=== PATIENT | male | born 1975 | race Caucasian/White ===

== ENCOUNTER 2017-10-29 10:08 | Observation (INO) | payer MEDICARE, MEDICAID ==
[~2017-10-29] VITALS: Ht 170.2 cm; Wt 78.0 kg
[2017-10-29] VITALS (7 sets, daily range): BP systolic 150; BP diastolic 88–90; PULSE 48–68; RESP 16; TEMP 97.8–98.3; O2SAT 96–98
[2017-10-29] MEDS ORDERED: CALC1CAP PO (10:41)
[2017-10-29 10:57] LABS: AUTOMATED NEUTROPHIL # 4.4 TH/MM3 (1.8-7.7); BASOPHIL # 0.1 TH/MM3 (0-0.2); BASOPHIL % 0.9 % (0.0-2.0); EOSINOPHIL # 0.2 TH/MM3 (0-0.4); EOSINOPHIL % 2.8 % (0.0-4.0); HEMATOCRIT 32.7 % (39.0-51.0); LYMPH % 19.9 % (9.0-44.0); LYMPHOCYTE # 1.3 TH/MM3 (1.0-4.8); MEAN CELL VOLUME 68.9 FL (80.0-100.0); MEAN CORPUSCULAR HGB CONC 30.5 % (32.0-36.0); MEAN PLATELET VOLUME 9.3 FL (7.0-11.0); MONO % 6.9 % (0.0-8.0); MONOCYTE # 0.4 TH/MM3 (0-0.9); NEUT % 69.5 % (16.0-70.0); PLATELET COUNT 90 TH/MM3 (150-450); RED BLOOD COUNT 4.75 MIL/MM3 (4.50-5.90); RED CELL DISTRIBUTION WIDTH 19.2 % (11.6-17.2); WHITE BLOOD COUNT 6.3 TH/MM3 (4.0-11.0)
[2017-10-29] MEDS ORDERED: SODIUM CHLORID 0.9% 500 ML IV PRN (11:00)
[2017-10-29] MEDS ORDERED: METOPROLOL TARTRATE 25 MG TAB PO PRN (11:00)
[2017-10-29] MEDS ORDERED: CHLORHEXIDINE GLUCONATE 2 % 1 PACK (2 CLOTHS) TOPICAL PRN (11:00)
[2017-10-29] MEDS ORDERED: POVIDONE IODINE 5% (ANTISEPSIS KIT) 4 APPLICATIONS EACH NARE PRN (11:00)
[2017-10-29] MEDS ORDERED: LACTATED RINGER'S 1000 ML IV PRN (11:00)
[2017-10-29 11:08] LABS: PROTHROMBIN TIME - PATIENT 10.1 SEC (9.8-11.6)
[2017-10-29 11:17] LABS: BICARBONATE 20.4 MEQ/L (21.0-32.0); CALCIUM 9.5 MG/DL (8.5-10.1)
[2017-10-29 11:33] LABS: CREATININE 12.96 MG/DL (0.60-1.30)
[2017-10-29 11:36] LABS: OVALOCYTES 1+ (NORMAL); TEARDROP RBCS 1+ (NORMAL)
[2017-10-29] MEDS ORDERED: PROTAMINE SULFATE 50 MG/5 ML VIAL ONE (12:08)
[2017-10-29] MEDS ORDERED: HEPARIN SODIUM - IV 10,000 UNITS/10 ML VIAL ONE (12:08)
[2017-10-29] MEDS ORDERED: HEPARIN-NS/PF INJ 500 ML ONE (12:09)
[2017-10-29] MEDS ORDERED: VANCOMYCIN HCL 1000 MG VIAL ONE (12:09)
[2017-10-29] MEDS ORDERED: BUPIVACAINE HCL PF 0.5% 30 ML VIAL ONE (12:09)
--- NOTE | 2017-10-29 12:12 | PD.VS.PN ---
Pre-operative Note Pre-operative diagnosis: ESRD, need for HD access Planned procedure: R brachiobasilic AVF Interval History: Pt had HD over week-end. Feels nauseated because NPO but otherwise ready for procedure Labs: Laboratory Results Test 10/29/17 10:40 Anion Gap 11 MEQ/L (5-15) Blood Urea Nitrogen 71 MG/DL (7-18) Creatinine 12.96 MG/DL (0.60-1.30) Random Glucose 94 MG/DL (74-106) Calcium Level 9.5 MG/DL (8.5-10.1) Sodium Level 141 MEQ/L (136-145) Potassium Level 5.8 MEQ/L (3.5-5.1) Chloride Level 110 MEQ/L (98-107) Carbon Dioxide Level 20.4 MEQ/L (21.0-32.0) Hematocrit 32.7 % (39.0-51.0) Hemoglobin 10.0 GM/DL (13.0-17.0) Mean Corpuscular Hemoglobin 21.0 PG (27.0-34.0) Mean Corpuscular Hemoglobin Concent 30.5 % (32.0-36.0) Mean Corpuscular Volume 68.9 FL (80.0-100.0) Mean Platelet Volume 9.3 FL (7.0-11.0) Platelet Count 90 TH/MM3 (150-450) Prothromb Time International Ratio 1.0 RATIO Red Blood Count 4.75 MIL/MM3 (4.50-5.90) Red Cell Distribution Width 19.2 % (11.6-17.2) White Blood Count 6.3 TH/MM3 (4.0-11.0) Blood: none needed Imaging: ultrasound reviewed Orders: NPO VANC 1g IV OCTOR Post-operative destination: PACU, CPCU Operative site marked: Yes Consent: Informed consent has been obtained from Fly Feng. I have explained the procedure in detail and discussed the risks, benefits, and potential complications. All questions have been answered. Patient contact information: Mother [phone] BereniceDaljit aDng MD Oct 29, 2017 12:12
[2017-10-29] MEDS ORDERED: THROMBIN (TOPICAL) 20,000 UNIT SPRAY KIT ONE (13:10)
--- NOTE | 2017-10-29 14:27 | HHI.PR ---
cc: Daljit Ng MD Immediate Post Op Note Procedure Date: Oct 29, 2017 Pre Op Diagnosis: ESRD, need for HD access Post Op Diagnosis: ESRD, need for HD Access Surgeon: Daljit Ng Multimedia Specialist(s): Bre Avalos Procedure: R brachiobasilic AVF Findings: 4mm vein, 3mm artery Additional Information: + thrill and + ulnar pulse at conclusion of case Complications: none Specimen(s) removed: none Estimated blood loss: 50mL Anesthesia: General Drains: OWEN Fluids: 750mL IVF Patient to: PACU Patient Condition: Good Date/Time of Procedure: SEE SURGICAL CARE RECORD Daljit Ng MD Oct 29, 2017 14:27
[2017-10-29] MEDS ORDERED: HYDROmorphone HCL 2 MG TAB PO PRN (14:30)
[2017-10-29] MEDS ORDERED: HEPARIN SODIUM - SQ 10,000 UNITS/ML VIAL SQ SCH (14:30)
[2017-10-29] MEDS ORDERED: LACTULOSE SYRUP 20 GM/30 ML CUP PO PRN (14:30)
[2017-10-29] MEDS ORDERED: SENNOSIDES 8.6 MG TAB PO PRN (14:30)
[2017-10-29] MEDS ORDERED: BISACODYL 10 MG SUPP RECTAL PRN (14:30)
[2017-10-29] MEDS ORDERED: MORPHINE SULFATE 2 MG/ML INJ IV PRN (14:45)
[2017-10-29] MEDS ORDERED: DO NOT ADM ANY ANTICOAGULANT DRUGS PRN (15:06)
[2017-10-29] MEDS ORDERED: SODIUM CHLOR 0.9% 1000 ML INJ 1,000 ML OTHER PRN ×2 (16:03)
[2017-10-29] MEDS ORDERED: SODIUM CHLOR 0.9% 1000 ML INJ 1,000 ML IV PRN (16:03)
--- NOTE | 2017-10-29 16:11 | PD.CONS ---
HPI Service Nephrology Consult Requested By Reason for Consult ESRD on HD, hyperkalemia Primary Care Physician Fausto Meeks MD History of Present Illness This is a 41 y/o male who was admitted post AVF creation, brachiobasilic. His right lower arm AVF failed, he has a Permcath for dialysis. He now has a OWEN drain medial AC area. He is having pain. His labs are significant for elevated creatinine in the setting of ESRD and hyperkalemia at 5.8. He is seen today during dialysis. Otherwise is doing well. PMH as listed below. We were consulted for management. (Deloris Henderson) Review of Systems Constitutional: COMPLAINS OF: Fatigue Musculoskeletal: COMPLAINS OF: Muscle aches, Joint Swelling (Deloris Henderson) Past Family Social History Allergies: Coded Allergies: No Known Allergies (Unverified , 10/29/17) Past Medical History ESRD on HD HTN Metabolic bone disease Secondary hyperparathyroidism Past Surgical History Right lower arm, AVF, failed New BB AVF, upper arm. Reported Medications Unable to list medications. Active Ordered Medications Current Medications Medications (Trade) Dose Ordered Sig/Yeny Route Start Time Stop Time Status Last Admin Lactated Ringer's 1,000 ml @ 30 mls/hr Q24H PRN IV 10/29/17 11:00 11/01/17 10:59 Sodium Chloride 500 ml @ 30 mls/hr [id number] PRN IV 10/29/17 11:00 11/01/17 10:59 10/29/17 10:15 (Lopressor) 25 mg RECREATION DIRECTOR PRN PO 10/29/17 11:00 11/01/17 10:59 (Betadine 5% Antisepsis Kit) 1 applic RECREATION DIRECTOR PRN EACH NARE 10/29/17 11:00 11/01/17 10:59 10/29/17 10:30 (Chlorhexidine 2% Cloth) 3 pack RECREATION DIRECTOR PRN TOPICAL 10/29/17 11:00 11/01/17 10:59 (Pepcid) 20 mg DAILY PO 10/29/17 21:00 (Roxicodone) 5 mg Q4H PRN PO 10/29/17 14:30 (Dilaudid) 2 mg Q4H PRN PO 10/29/17 14:30 (Morphine Inj) 2 mg Q1H PRN IV 10/29/17 14:45 (Aneta-Colace) 1 tab BID PO 10/29/17 21:00 (Senokot) 17.2 mg Q12H PRN PO 10/29/17 14:30 (Dulcolax Supp) 10 mg DAILY PRN RECTAL 10/29/17 14:30 (Lactulose Liq) 30 ml DAILY PRN PO 10/29/17 14:30 (Phoslo) 2,001 mg TID PO 10/29/17 18:00 Miscellaneous Information ALL NURSING DEPARTME... UNSCH PRN .XX 10/29/17 15:06 10/30/17 15:05 (Heparin Inj) 5,000 units Q8HR SQ 10/30/17 14:00 Family History Non contributory Social History He does not smoke Unemployed Full code Single. (Deloris Henderson) Physical Exam Vital Signs Vital Signs Date Time Temp Pulse Resp B/P (MAP) Pulse Ox O2 Delivery O2 Flow Rate FiO2 10/29/17 15:30 97.8 56 20 167/100 (122) 100 Nasal Cannula 2 10/29/17 15:15 57 20 173/103 (126) 100 Nasal Cannula 2 10/29/17 15:08 97.8 60 20 192/102 (132) 95 Nasal Cannula 2 10/29/17 10:48 98.4 48 20 180/108 (132) 98 Physical Exam Young appearing male, receiving dialysis Permcath right chest AVF right upper arm, edematous and slightly tender OWEN drain right medial AC area No lower extremity edema S1/S2, lungs clear, BS normal x 4 Laboratory Laboratory Tests Test 10/29/17 10:40 White Blood Count 6.3 Red Blood Count 4.75 Hemoglobin 10.0 Hematocrit 32.7 Mean Corpuscular Volume 68.9 Mean Corpuscular Hemoglobin 21.0 Mean Corpuscular Hemoglobin Concent 30.5 Red Cell Distribution Width 19.2 Platelet Count 90 Mean Platelet Volume 9.3 Neutrophils (%) (Auto) 69.5 Lymphocytes (%) (Auto) 19.9 Monocytes (%) (Auto) 6.9 Eosinophils (%) (Auto) 2.8 Basophils (%) (Auto) 0.9 Neutrophils # (Auto) 4.4 Lymphocytes # (Auto) 1.3 Monocytes # (Auto) 0.4 Eosinophils # (Auto) 0.2 Basophils # (Auto) 0.1 CBC Comment AUTO DIFF Differential Comment AUTO DIFF CONFIRMED Platelet Estimate LOW Platelet Morphology Comment ENLARGED Tear Drop Cells 1+ Ovalocytes 1+ Prothrombin Time 10.1 Prothromb Time International Ratio 1.0 Blood Urea Nitrogen 71 Creatinine 12.96 Random Glucose 94 Calcium Level 9.5 Sodium Level 141 Potassium Level 5.8 Chloride Level 110 Carbon Dioxide Level 20.4 Anion Gap 11 Estimat Glomerular Filtration Rate 4 (Deloris Henderson) Result Diagram: 10/29/17 1040 10/29/17 1040 Assessment and Plan Problem List: (1) ESRD (end stage renal disease) ICD Codes: N18.6 - End stage renal disease Plan: Seen during dialysis today (due to hyperkalemia) on a 1K, 350 BFR, goal 3L Resume MWF HD schedule in AM Repeat labs in AM Avoid IVF administration (2) Complication of AV dialysis fistula ICD Codes: T82.9XXA - Unspecified complication of cardiac and vascular prosthetic device, implant and graft, initial encounter Plan: S/P new BB AVF right upper arm Vascular to manage prn pain medications (3) Hyperkalemia ICD Codes: E87.5 - Hyperkalemia Plan: Dialysis today on a 1K Low K diet encouraged (4) Metabolic bone disease ICD Codes: E88.9 - Metabolic disorder, unspecified; M90.80 - Osteopathy in diseases classified elsewhere, unspecified site Plan: Check phosphorus level Renvela ordered (5) Anemia ICD Codes: D64.9 - Anemia, unspecified Plan: Epogen with dialysis has been ordered (Deloris Henderson) Assessment and Plan patient was seen and examined. Agree with above assessment and plan. Seen during dialysis. Dialysis arranged because of hyperkalemia. (Boogie Fontenot MD) Deloris Henderson Oct 29, 2017 16:11 Boogie Fontenot MD Oct 29, 2017 21:34
[2017-10-29] MEDS ORDERED: HEPARIN SODIUM - IV 10,000 UNITS/10 ML VIAL PRN (16:15)
[2017-10-29] MEDS ORDERED: HEPARIN SODIUM - IV 10,000 UNITS/10 ML VIAL IV FLUSH PRN (16:15)
[2017-10-29] MEDS ORDERED: GELATIN 12 MM/7 MM FOAM TOP PRN (16:15)
[2017-10-29] MEDS ORDERED: NITROGLYCERIN 0.4 MG SL 25 TABS/BTL SL PRN (16:15)
[2017-10-29] MEDS ORDERED: ACETAMINOPHEN 325 MG TAB PO PRN (16:15)
[2017-10-29] MEDS ORDERED: EPOETIN ALFA 10,000 UNITS/ML VIAL IV PUSH PRN (16:15)
[2017-10-29] MEDS ORDERED: cloNIDine HCL 0.1 MG TAB PO PRN (16:15)
[2017-10-29] MEDS ORDERED: ALBUMIN 25% INJ 100 ML IV PRN (16:15)
[2017-10-29] MEDS ORDERED: MANNITOL 12.5 GM/50 ML VIAL IV PRN (16:15)
[2017-10-29] MEDS ORDERED: ONDANSETRON HCL 4 MG/2 ML VIAL IV PUSH PRN (16:15)
[2017-10-29] MEDS ORDERED: diphenhydrAMINE HCL 25 MG CAP PO PRN (16:15)
[2017-10-29] MEDS ORDERED: GENTAMICIN SULFATE (DIALYSIS USE ONLY) 20 MG/2 ML VIAL OTHER PRN (16:15)
[2017-10-29] MEDS ORDERED: SODIUM CHLORIDE 0.9% FLUSH 10 ML FLUSH IV FLUSH PRN (16:15)
[2017-10-29] MEDS: CALCIUM ACETATE 667 MG CAP PO SCH (20:46)
[2017-10-29] MEDS: FAMOTIDINE 20 MG TAB PO SCH (20:46)
[2017-10-29] MEDS: DOCUSATE SODIUM 50 MG/SENNA 8.6 MG TAB PO SCH (20:46)
[2017-10-29] MEDS: SEVELAMER CARBONATE 800 MG TAB PO SCH (20:46)
--- NOTE | 2017-10-29 21:46 | MP ---
cc: ELEAZAR NG MD DATE OF SURGERY: 10/29/2017 PREOPERATIVE DIAGNOSIS: End-stage renal disease needs dialysis access POSTOPERATIVE DIAGNOSIS End-stage renal disease, needs dialysis access. PROCEDURE Right brachial basilic arteriovenous fistula. ATTENDING SURGEON: Eleazar Ng MD. FRAUD ANALYST SURGEON: Bre Willoughby. ANESTHESIA General INDICATIONS Mr. Feng is a 41 old gentleman who has been on dialysis for some time. He is taken to the operating room for new access creation. Preoperative imaging suggested his right basilic vein was his best autogenous conduit. DESCRIPTION OF PROCEDURE Informed consent was obtained from the patient. He is taken to the operating room, placed supine on the operating room table. Appropriate time-out was taken to ensure the patient's operative site and planned procedure. Administration of a gram of Vancomycin was initiated prior to the skin incision and will be discontinued after a single preoperative dose. Vancomycin was chosen because of the patient's end-stage renal disease. Everyone in the room agreed with the time out and we proceeded. His entire right arm was prepped and draped. An incision was made over the medial aspect of the upper arm, carried down through the subcutaneous tissue with electrocautery. The basilic vein was identified and dissected free. The side branches were ligated with 3-0 silk. The basilic vein was dissected from the antecubitum all the way up to the axilla. The vein was marked for identification. The brachial artery was identified on the medial aspect of the incision down at the distal end and the basilic vein was clamped with the right angle down to the antecubitum, transected, and the distal end was oversewn with silk suture. The vein was distended, noted to be hemostatic and then a tunnel was then created on the anterior aspect of the arm, and the vein was passed through this tunnel taking caution not to twist it. The patient was systematically heparinized with 3000 units of IV heparin. The proximal and distal brachial artery obtained with the profunda clamps and a longitudinal arteriotomy was made and extended with Rolando scissors. The vein was cut to appropriate length, spatulated and sewn end-to-side with running 6-0 Prolene suture. The patient was flushed and noted to be hemostatic. All the clamps released. There was a nice thrill in the fistula and a Doppler signal at rest. The heparin was reversed with protamine. A 10 flat OWEN drain was placed through a separate stab wound, secured to the skin with a 2-0 nylon. The wound was made hemostatic and closed with 2-0 Polysorb, 3-0 Polysorb and 4-0 Monocryl. Sponge and needle counts were correct at the end of the case. I was present and scrubbed and performed the entire procedure. MD HILTON Dowd/PAM /8:04 PM /8:40 PM
[2017-10-30] VITALS (14 sets, daily range): BP systolic 150–160; BP diastolic 85–96; PULSE 62–90; RESP 16–19; TEMP 97.6–98.3; O2SAT 97–99
[2017-10-30 04:19] LABS: HEMATOCRIT 32.1 % (39.0-51.0); HEMOGLOBIN 10.3 GM/DL (13.0-17.0); MEAN CELL VOLUME 67.7 FL (80.0-100.0); MEAN CORPUSCULAR HEMOGLOBIN 21.7 PG (27.0-34.0); MEAN CORPUSCULAR HGB CONC 32.1 % (32.0-36.0); MEAN PLATELET VOLUME 10.7 FL (7.0-11.0); PLATELET COUNT 115 TH/MM3 (150-450); RED BLOOD COUNT 4.75 MIL/MM3 (4.50-5.90); RED CELL DISTRIBUTION WIDTH 18.7 % (11.6-17.2); WHITE BLOOD COUNT 8.3 TH/MM3 (4.0-11.0)
[2017-10-30 04:39] LABS: BICARBONATE 29.2 MEQ/L (21.0-32.0); CALCIUM 8.4 MG/DL (8.5-10.1); CREATININE 9.73 MG/DL (0.60-1.30); PHOSPHORUS 3.9 MG/DL (2.5-4.9)
--- NOTE | 2017-10-30 07:18 | PD.VS.PN ---
Subjective POD #: 1 Procedure(s): R brachiobasilic AVF Subjective/Hospital Course pain controlled last night Had HD but K still high this morning. Objective Vitals/I&O Date Time Temp Pulse Resp B/P (MAP) Pulse Ox O2 Delivery O2 Flow Rate FiO2 10/30/17 06:00 70 10/30/17 05:00 68 10/30/17 04:31 98 Nasal Cannula 2.00 10/30/17 04:00 70 10/30/17 03:10 97.6 71 16 154/95 (114) 98 10/30/17 03:00 72 10/30/17 02:00 62 10/30/17 01:00 66 10/30/17 00:00 74 10/29/17 23:10 98.3 64 16 150/90 (110) 98 10/29/17 23:00 68 10/29/17 22:00 58 10/29/17 21:00 56 10/29/17 20:20 97.8 57 16 150/88 (108) 96 10/29/17 20:00 48 10/29/17 19:00 52 10/29/17 15:30 97.8 56 20 167/100 (122) 100 Nasal Cannula 2 10/29/17 15:15 57 20 173/103 (126) 100 Nasal Cannula 2 10/29/17 15:08 97.8 60 20 192/102 (132) 95 Nasal Cannula 2 10/29/17 10:48 98.4 48 20 180/108 (132) 98 10/30/17 10/30/17 10/30/17 07:00 15:00 23:00 Intake Total 720 ml Output Total 220 ml Balance 500 ml Exam: R UE with excellent thrill hand ok drain - 20 cc of serosang Laboratory Laboratory Tests Test 10/29/17 10:40 10/30/17 03:40 White Blood Count 6.3 8.3 Red Blood Count 4.75 4.75 Hemoglobin 10.0 10.3 Hematocrit 32.7 32.1 Mean Corpuscular Volume 68.9 67.7 Mean Corpuscular Hemoglobin 21.0 21.7 Mean Corpuscular Hemoglobin Concent 30.5 32.1 Red Cell Distribution Width 19.2 18.7 Platelet Count 90 115 Mean Platelet Volume 9.3 10.7 Neutrophils (%) (Auto) 69.5 Lymphocytes (%) (Auto) 19.9 Monocytes (%) (Auto) 6.9 Eosinophils (%) (Auto) 2.8 Basophils (%) (Auto) 0.9 Neutrophils # (Auto) 4.4 Lymphocytes # (Auto) 1.3 Monocytes # (Auto) 0.4 Eosinophils # (Auto) 0.2 Basophils # (Auto) 0.1 CBC Comment AUTO DIFF Differential Comment AUTO DIFF CONFIRMED Platelet Estimate LOW Platelet Morphology Comment ENLARGED Tear Drop Cells 1+ Ovalocytes 1+ Prothrombin Time 10.1 Prothromb Time International Ratio 1.0 Blood Urea Nitrogen 71 50 Creatinine 12.96 9.73 Random Glucose 94 102 Calcium Level 9.5 8.4 Sodium Level 141 136 Potassium Level 5.8 6.1 Chloride Level 110 100 Carbon Dioxide Level 20.4 29.2 Anion Gap 11 7 Estimat Glomerular Filtration Rate 4 6 Phosphorus Level 3.9 Assessment and Plan Plan POD#1 s/p R UE brachiobasilic AVF 1. D/C OWEN - done on rounds 2. D/C today after HD 3. F/U 2 weeks Daljit Ng MD Oct 30, 2017 07:18
--- NOTE | 2017-10-30 07:20 | PD.VS.DC ---
Discharge Summary Admission Date: Oct 29, 2017 at 14:30 Discharge Date: Oct 30, 2017 Admission Diagnosis: (1) ESRD (end stage renal disease) (2) Complication of AV dialysis fistula Discharge Diagnosis: (1) ESRD (end stage renal disease) ICD Codes: N18.6 - End stage renal disease (2) Complication of AV dialysis fistula ICD Codes: T82.9XXA - Unspecified complication of cardiac and vascular prosthetic device, implant and graft, initial encounter Brief History from admission 41 yo male with ESRD, + HD. Previously had R RC AVF that has thrombosed. Pt LEFT handed. Planned R UE brachiobasilic AVF Procedure(s): R brachiobasilic AVF Significant Findings Laboratory Tests Test 10/29/17 10:40 10/30/17 03:40 Hemoglobin 10.0 GM/DL (13.0-17.0) 10.3 GM/DL (13.0-17.0) Hematocrit 32.7 % (39.0-51.0) 32.1 % (39.0-51.0) Mean Corpuscular Volume 68.9 FL (80.0-100.0) 67.7 FL (80.0-100.0) Mean Corpuscular Hemoglobin 21.0 PG (27.0-34.0) 21.7 PG (27.0-34.0) Mean Corpuscular Hemoglobin Concent 30.5 % (32.0-36.0) Red Cell Distribution Width 19.2 % (11.6-17.2) 18.7 % (11.6-17.2) Platelet Count 90 TH/MM3 (150-450) 115 TH/MM3 (150-450) Platelet Estimate LOW (NORMAL) Platelet Morphology Comment ENLARGED (NORMAL) Tear Drop Cells 1+ (NORMAL) Ovalocytes 1+ (NORMAL) Blood Urea Nitrogen 71 MG/DL (7-18) 50 MG/DL (7-18) Creatinine 12.96 MG/DL (0.60-1.30) 9.73 MG/DL (0.60-1.30) Potassium Level 5.8 MEQ/L (3.5-5.1) 6.1 MEQ/L (3.5-5.1) Chloride Level 110 MEQ/L (98-107) Carbon Dioxide Level 20.4 MEQ/L (21.0-32.0) Estimat Glomerular Filtration Rate 4 ML/MIN (>89) 6 ML/MIN (>89) Calcium Level 8.4 MG/DL (8.5-10.1) Hospital Course: Pt adm post-op. Had HD POD#0 and will need again POD#1 for hyperkalemia. Hand ok and excellent thrill POD#1. OWEN out without difficulty. Mahin po. Discharge Condition: Good Discharge Disposition: Discharge Home Any questions or concerns: Call [facility] at [facility] [phone] Daljit Ng MD Oct 30, 2017 07:20
[2017-10-30] MEDS: FAMOTIDINE 20 MG TAB PO SCH (08:04)
[2017-10-30] MEDS: CALCIUM ACETATE 667 MG CAP PO SCH (08:04)
[2017-10-30] MEDS: SEVELAMER CARBONATE 800 MG TAB PO SCH ×2 (08:04→12:52)
[2017-10-30] MEDS: DOCUSATE SODIUM 50 MG/SENNA 8.6 MG TAB PO SCH (08:05)
[2017-10-30] MEDS ORDERED: INSULIN HUMAN REGULAR 1,000 UNITS/10 ML VIAL IV PUSH ONE (09:00)
[2017-10-30] MEDS ORDERED: DEXTROSE 50% IN WATER 50 ML SYRINGE IV PUSH ONE (09:00)
[2017-10-30] MEDS ORDERED: SODIUM BICARBONATE 8.4% INJ 50 MEQ/50 ML SYR IV PUSH ONE (09:00)
--- NOTE | 2017-10-30 09:46 | HHI.NPPN ---
Subjective Renal Failure: Chronic, End Stage Renal Disease Interval History Seen during dialysis. He is again hyperkalemic. (Deloris Henderson) Objective Data Data Vital Signs Date Time Temp Pulse Resp B/P (MAP) Pulse Ox O2 Delivery O2 Flow Rate FiO2 10/30/17 09:00 65 10/30/17 08:00 90 10/30/17 07:00 98.3 67 19 150/85 (106) 97 10/30/17 07:00 67 10/30/17 06:00 70 10/30/17 05:00 68 10/30/17 04:31 98 Nasal Cannula 2.00 10/30/17 04:00 70 10/30/17 03:10 97.6 71 16 154/95 (114) 98 10/30/17 03:00 72 10/30/17 02:00 62 10/30/17 01:00 66 10/30/17 00:00 74 10/29/17 23:10 98.3 64 16 150/90 (110) 98 10/29/17 23:00 68 10/29/17 22:00 58 10/29/17 21:00 56 10/29/17 20:20 97.8 57 16 150/88 (108) 96 10/29/17 20:00 48 10/29/17 19:00 52 10/29/17 15:30 97.8 56 20 167/100 (122) 100 Nasal Cannula 2 10/29/17 15:15 57 20 173/103 (126) 100 Nasal Cannula 2 10/29/17 15:08 97.8 60 20 192/102 (132) 95 Nasal Cannula 2 10/29/17 10:48 98.4 48 20 180/108 (132) 98 (Deloris Henderson) -: 10/30/17 0340 10/30/17 0340 Tubes & Lines: Perma-Cath (Deloris Henderson) Physical Exam General Appearance: Well Developed, Comfortable (Deloris Henderson) Eyes Eye Exam: Pupils Equal (Deloris Henderson) Throat Throat Exam: Oral Mucosa [place] & Moist (Deloris Henderson) Pulmonary Resp Exam: Clear Bilaterally, Breath Sounds Equal (Deloris Henderson) Cardiology CV Exam: Regular, Normal Sinus Rhythm (Deloris Henderson) Gastrointestinal/Abdomen GI Exam: Soft, Non-Tender (Deloris Henderson) Musculoskeletal MS Exam: Joints Intact, Normal Tone (Deloris Henderson) Integumentary Skin Exam: Warm, Dry (Deloirs Henderson) Extremeties Extremities Exam: No Edema, Pedal Pulses Palpable Extremeties Remarks right arm, AVF patent upper arm, minor edema (Deloris Henderson) Neurologic Neuro Exam: Alert, Awake, Oriented, Speech Clear, Moving All Extremities (Deloris Henderson) Psychiatric Psych Exam: Appropriate Responses (Deloris Henderson) Assessment/Plan Discussed Condition With: Patient Assessment Summary: Anemia of CKD, Hypertension, End Stage Renal Disease Problem List: (1) ESRD (end stage renal disease) ICD Codes: N18.6 - End stage renal disease Plan: Dialyzed yesterday due to hyperkalemia; seen during dialysis today on a 1K, 350 BFR, goal 1L. Resume MWF HD schedule at discharge. Goes to [facility] clinic. Avoid IVF administration Low K diet ordered. Cleared for discharge when vascular agrees. (2) Complication of AV dialysis fistula ICD Codes: T82.9XXA - Unspecified complication of cardiac and vascular prosthetic device, implant and graft, initial encounter Plan: S/P new BB AVF right upper arm Vascular to manage prn pain medications (3) Hyperkalemia ICD Codes: E87.5 - Hyperkalemia Plan: Dialysis today on a 1K Low K diet encouraged (4) Metabolic bone disease ICD Codes: E88.9 - Metabolic disorder, unspecified; M90.80 - Osteopathy in diseases classified elsewhere, unspecified site Plan: On Renvela, stop Calcium acetate. (5) Anemia ICD Codes: D64.9 - Anemia, unspecified Plan: Epogen with dialysis has been ordered (Deloris Henderson) Plan patient was seen and examined during dialysis. Hyperkalemia is noted. Should improve after dialysis. Cleared for discharge from renal standpoint. (Boogie Fontenot MD) Deloris Henderson Oct 30, 2017 09:46 Boogie Fontenot MD Oct 30, 2017 17:48
[2017-10-30] MEDS ORDERED: HEPARIN SODIUM - SQ 10,000 UNITS/ML VIAL SQ SCH (14:00)
== END 2017-10-30 14:08 | disposition home or self-care (01) ==
LOC: HSDC 10:08 → HSDI 14:30 → HCPC 18:53
PROVIDERS: ADMIT Surgery; ATTEND Surgery
DX: T82.590A Other mechanical complication of surgically created arteriovenous fistula, initial encounter (principal); I12.0 Hypertensive chronic kidney disease with stage 5 chronic kidney disease or end stage renal disease; N18.6 End stage renal disease; D63.1 Anemia in chronic kidney disease; E87.5 Hyperkalemia; E88.89 Other specified metabolic disorders; N25.81 Secondary hyperparathyroidism of renal origin; Y83.2 Surgical operation with anastomosis, bypass or graft as the cause of abnormal reaction of the patient, or of later complication, without mention of misadventure at the time of the procedure
CPT/HCPCS: 01844; 36821; 76937; 80048; 84100; 85025; 85027; 85610; 86850; 86900; 86901; 96374; 96375; G0257; G0378; J1580; J1644; J2720; J3010; J3370; J7030; J7040; Q4081; 90935

== ENCOUNTER 2017-12-24 14:57 | Day surgery (SDC) | payer MEDICARE, MEDICAID ==
[~2017-12-24 14:57] MED LIST: CALC1CAP PO
[2017-12-24] MEDS ORDERED: IOHEXOL 350 MG/ML 50 ML BTL (for Cath Lab) OTHER ONE (14:58)
--- NOTE | 2017-12-24 15:19 | HHI.HP ---
History of Present Illness Chief Complaint: nonmaturing R UE AVF History of Present Illness 42 yo male with ESRD currently on HD. Underwent R BB AVF and on routine surveillance for AVF clearance was noted to have outflow stenosis. No other medical troubles that would preclude OR. Past/Family/Social History Past Medical History ESRD HTN Past Surgical History Multiple UE AVF Social History nonsmoker Family History NC Home Medications Reported Medications Calcium Acetate (Phosphate Binder) (Calcium Acetate (Phosphate Binder)) 667 Mg Cap, 2001 MG PO TID for Hyperphosphatemia, #270 CAP 0 Refills 10/29/17 Coded Allergies: No Known Allergies (Unverified , 10/29/17) Review of Systems Constitutional: DENIES: Diaphoretic episodes, Fatigue, Fever, Weight gain, Weight loss, Chills, Dizziness, Change in appetite, Night Sweats Physical Exam Neuro: awake, alert HEENT: NC/AT Neck: no JVD Heart: reg rate Lungs: clear B Vascular: R UE + thrill hand ok pending Caprini VTE Risk Assessment Caprini VTE Risk Assessment: No/Low Risk (score <= 1) Caprini Risk Assessment Model Point Value = 1 Point Value = 2 Point Value = 3 Point Value = 5 Age 41-60 Minor surgery BMI > 25 kg/m2 Swollen legs Varicose veins or History of unexplained or recurrent spontaneous Oral contraceptives or hormone replacement Sepsis (< 1 month) Serious lung disease, including pneumonia (< 1 month) Abnormal pulmonary function Acute myocardial infarction Congestive heart failure (< 1 month) History of inflammatory bowel disease Medical patient at bed rest Age 61-74 Arthroscopic surgery Major open surgery (> 45 min) Laparoscopic surgery (> 45 min) Malignancy Confined to bed (> 72 hours) Immobilizing plaster cast Central venous access Age >= 75 History of VTE Family history of VTE Factor V Leiden Prothrombin [id number] Lupus anticoagulant Anticardiolipin antibodies Elevated serum homocysteine Heparin-induced thrombocytopenia Other congenital or acquired thrombophilia Stroke (< 1 month) Elective arthroplasty Hip, pelvis, or leg fracture Acute spinal cord injury (< 1 month) Prophylaxis Regimen Total Risk Factor Score Risk Level Prophylaxis Regimen 0-1 Low Early ambulation 2 Moderate Order ONE of the following: *Sequential Compression Device (SCD) *Heparin 5000 units SQ BID 3-4 Higher Order ONE of the following medications: *Heparin 5000 units SQ TID *Enoxaparin/Lovenox 40 mg SQ daily (WT < 150 kg, CrCl > 30 mL/min) *Enoxaparin/Lovenox 30 mg SQ daily (WT < 150 kg, CrCl > 10-29 mL/min) *Enoxaparin/Lovenox 30 mg SQ BID (WT < 150 kg, CrCl > 30 mL/min) AND/OR *Sequential Compression Device (SCD) 5 or more Highest Order ONE of the following medications: *Heparin 5000 units SQ TID (Preferred with Epidurals) *Enoxaparin/Lovenox 40 mg SQ daily (WT < 150 kg, CrCl > 30 mL/min) *Enoxaparin/Lovenox 30 mg SQ daily (WT < 150 kg, CrCl > 10-29 mL/min) *Enoxaparin/Lovenox 30 mg SQ BID (WT < 150 kg, CrCl > 30 mL/min) AND *Sequential Compression Device (SCD) Assessment and Plan Plan R UE fistulogram and SU[employer]OR [employer]/stent Ready for surgery. To OR. Daljit Ng MD Dec 24, 2017 15:19
[2017-12-24] MEDS ORDERED: MIDAZOLAM HCL 2 MG/2 ML VIAL ONE (15:31)
[2017-12-24] MEDS ORDERED: HEPARIN-NS/PF FLUSH BAG 1,000 ML IV FLUSH ONE (15:34)
[2017-12-24] MEDS ORDERED: HEPARIN SODIUM - IV 10,000 UNITS/10 ML VIAL ONE (15:42)
--- NOTE | 2017-12-24 15:58 | HHI.PR ---
cc: Daljit Ng MD Immediate Post Op Note Procedure Date: Dec 24, 2017 Pre Op Diagnosis: failing R UE AV Post Op Diagnosis: failing R UE AV Surgeon: Daljit Ng Injection Molding Technician(s): none Procedure: R UE fistulogram LUMBER PULLER of outflow vein w 6x80 Findings: focal stenosis, successful LUMBER PULLER Complications: none Specimen(s) removed: none Estimated blood loss: 5mL Anesthesia: MAC Drains: None Patient to: Other (DOCU) Patient Condition: Good Date/Time of Procedure: SEE SURGICAL CARE RECORD Daljit Ng MD Dec 24, 2017 15:58
--- NOTE | 2017-12-24 16:00 | CATHPROC ---
[employer] HIS Report Study Information Study Number Admission Scheduled Start Study Start [id number] Dec 24 2017 2:57PM 12/24/2017 Dec 24 2017 3:35PM [place] Service Cath Endovascular Study Admit Source Facility Department [facility] - [employer] Physician and Clinical Staff Initial Daljit Nur Marine Biologist Xiomara Chang,RN Recorder Sin Grayson,RT(R) Scrub Jenaro Ross,RT(R) Procedures Performed Procedure Location (Site) Vessel Name HANDER IN Fistula Arterial Graft Wire insertion Fistula Arterial Graft Equipment Time Gas Roller Operator Description Size Mfg Part Number Used/Scraped INTRODUCER SET, 15:38 [employer] FR 5 [id number] *[id number] Used MICROPUNCTURE, STIFFENED WIRE, STORQ STANDARD MOD J [id number] 15:44 CORDIS/ ONEL 300CM Used 300CM *[id number] BALLOON, ADMIRAL EXTREME 6 [id number] 15:46 [employer] 130CM Used X 80 130CM *[id number] 15:38 [email or web address] IND[employer]RIES PACK, CCL CUSTOM * Used *[id number] TUBING, PRESSURE INJECTION [id number] 15:38 NAMIC PACER 72" Used 72" *[id number] 15:38 NYCOMED OMNIPAQUE, 300 MG, 150ML 150ML [id number] Used 15:38 NYCOMED OMNIPAQUE, 300 MG, 50ML 50ML [id number] Used [id number] 15:38 AGUIL[employer] MED[employer] BLANKET,WARM AIR CCL * Used *[id number] 15:43 TERUMO MEDICAL SHEATH, FR5 TERUMO (10CM) FR 5 Used *[id number] WIRE, ANGLED GLIDE .035 [id number] 15:38 TERUMO MEDICAL/ONEL 260CM Used 260CM *[id number] Medication Medication Total Dose (Bolus/Oral) Medication Total Dosage/Unit 1% XYLOCAINE 10 mL FENTANYL 50 mcg HEPARIN 3000 units VERSED 1 mg Medications (Bolus/Oral) Medication Time Given Dosage/Unit Administered By Reason VERSED 12/24/2017 3:38:33 PM 1 mg Xiomara Chang Patient arrived on 1 mg VERSED given by Xiomara Chang, RN via Peripheral IV. Ordered by Alvin Ng FENTANYL 12/24/2017 3:39:53 PM 50 mcg Xiomara Chang Patient arrived on 50 mcg FENTANYL given by Xiomara Chang, CONSUELO via Peripheral IV. Ordered by Daljit Ng. 1% XYLOCAINE 12/24/2017 3:40:38 PM 10 mL Daljit Ng Patient arrived on 10 mL 1% XYLOCAINE given by Daljit Ng in Right Arm via Subcutaneous. Ordered by Daljit Ng. HEPARIN 12/24/2017 3:44:43 PM 3000 units Xiomara Chang Patient arrived on 3000 units HEPARIN given by Xiomara Chang RN via Peripheral IV. Ordered by Daljit Roe. Medication (Drip) Medication Time Given Dosage/Unit Concentration/Unit Diluent (ml) Solution IV Solutions 12/24/2017 3:35:56 PM 0 mL (IV) 500 NaCl .9 Patient arrived on IV Solutions given by Daljit Ng in Left Antecubital via Peripheral IV. Pump/D rip Flow = 20 ml/hr using NaCl .9. Ordered by Daljit Ng. Initial Case Assessment Cardiovascular HR Rhythm NIBP 71 sr 180/118 Edema Present Skin color Skin None Normal Warm Dry Neurological State Oriented to time-place- Alert Moves all extremities person Respiration - General Respiration Rate SpO2 (%) O2 (lpm) (B/min) 18 100 0 Chronological Log Time Study Chronological Log 15:26:54 Patient arrived via Bed. Vitals capture started with the following parameters, Patient=Adult, Interval=5 min, Initial Feixtzpg=006 mmHg, 15:34:51 Deflation Rate=5 mmHg, Cuff placed on Right Ankle 15:35:00 Patient Name, D.O.B, / Armband Verified By R.N. 15:35:02 Consent signed by the physician and the patient and verified by the [employer] staff. 15:35:03 Pre-op and post- op instructions given; patient acknowledges understanding of instruction s. Verbal Stimulation=~VERBAL~ Physical Stimulation=~PHYSICAL~ Airway=~AIRWAY~ Respiration=~RESPIR ATION~ 15:35:03 TOTAL=~TOTAL~. (0=absent, 1=limited, 2=present) 15:35:18 Verbal Stimulation=2 Physical Stimulation=2 Airway=2 Respiration=2 TOTAL=8. (0=absent, 1=li mited, 2=present) 15:35:26 Presedation assessment performed by [employer] RN. 15:35:29 Patient has been NPO for More than 6Hrs. 15:35:30 Skin Breakdown-none present per patient. 15:35:34 HR=70 bpm, AWGT=462/118 mmhg, SpO2=98.0 %, Resp=11 B/min, Rhodes=2 15:35:45 A # 20 IV was noted in the Antecubital (left). Grade = 0 Patient arrived on IV Solutions given by Daljit Ng in Left Antecubital via Peripheral IV. Pump/Drip Flow = 20 ml/hr 15:35:56 using NaCl .9. Ordered by Daljit Ng. 15:36:19 History and physical on the chart or being dictated. 15:36:24 Reference ECG taken Assessment: Initial Case, HR=71 BPM, Rhythm=sr, MWFC=611/118 mmhg, Edema=None, Color=Normal, Sk in = Warm, Dry 15:36:26 Neurological: State=Alert, Ox3, LYONS Respiration: Resp=18 B/min, ApQ2=903 %, O2=0 lpm 15:37:12 Right arm prepped with 2% chlorhexidine, and draped after a 3 min. waiting time. 15:38:33 Patient arrived on 1 mg VERSED given by Xiomara Chang RN via Peripheral IV. Ordered by Daljit Nagel. 15:39:53 Patient arrived on 50 mcg FENTANYL given by Xiomara Chang, CONSUELO via Peripheral IV. Ordered by Daljit Ng. Time Out. Correct patient, correct procedure, correct physician, power injector not loaded with contrast with surgical 15:40:05 team present. Time Out Concurred by MD and individual staff in procedure. Not loaded at this ti me. 15:40:26 Presedation re-assessment performed by [employer] RN. 15:40:27 Case Start 15:40:29 Verbal Stimulation=2 Physical Stimulation=2 Airway=2 Respiration=2 TOTAL=8. (0=absent, 1=li mited, 2=present) 15:40:35 HR=82 bpm, EFDN=000/112 mmhg, SpO2=92.0 %, Resp=0 B/min, Rhodes=2 Patient arrived on 10 mL 1% XYLOCAINE given by Daljit Ng in Right Arm via Subcutaneous. Or dered by Berenice 15:40: Daljit. 15:40:58 Access site was right fistula. A INTRODUCER SET, MICROPUNCTURE, STIFFENED FR 5 was advanced into the Fem Art (right) using the 15:41:24 Percutaneous technique. 15:43:52 A WIRE, STORQ STANDARD MOD J 300CM 300CM was inserted via Fistula. A SHEATH, FR5 TERUMO (10CM) FR 5 was exchanged in the Fistula. This was necessary in order to a ccomodate a 15:44:04 larger catheter. 15:44:43 Patient arrived on 3000 units HEPARIN given by Xiomara Chang RN via Peripheral IV. Order ed by Daljit Ng. 15:45:32 HR=76 bpm, QLWZ=119/106 mmhg, SpO2=90.0 %, Resp=0 B/min, Rhodes=2 A BALLOON, ADMIRAL EXTREME 6 X 80 130CM 130CM was inserted over WIRE, STORQ STANDARD MOD J 300C M 15:46:33 300CM via the Fistula. 15:46:45 In the Fistula a BALLOON, ADMIRAL EXTREME 6 X 80 130CM 130CM was inflated to 12 atms for 12 0 seconds. 15:50:33 HR=77 bpm, NIEO=409/102 mmhg, SpO2=93.0 %, Resp=0 B/min, Rhodes=2 15:52:29 Balloon Removed. 15:52:38 Wire removed 15:52:48 Sheath removed; Site closed with a 4.0 Prolene. 15:53:56 Case End 15:55:30 HR=75 bpm, OIGF=559/108 mmhg, SpO2=93.0 %, Resp=0 B/min, Rhodes=2 15:56:17 Sterile dressing applied to site 15:56:20 No case complications noted. 15:56:22 Cine recording checked. 15:56:24 Bedside Report will be given. 15:58:03 Patient moved to stretcher 15:59:59 Vitals capture stopped. End Study - Contrast Media Used In Study Contrast Total Opened (mL) Total Used (mL) Total Wasted (mL) Omnipaque 15 15 0 End Study - Radiation Exposure Fluoro Time (minutes) 1.5 End Study - Patient Disposition Complications Transferred To No Telemetry Bed
--- NOTE | 2017-12-26 07:10 | MP ---
cc: Daljit Ng MD DATE OF OPERATION: 12/24/2017 PREOPERATIVE DIAGNOSIS: Failing right upper extremity arteriovenous fistula. POSTOPERATIVE DIAGNOSIS: Failing right upper extremity arteriovenous fistula. PROCEDURE PERFORMED: 1. Right upper extremity fistulogram. 2. Angioplasty of outflow vein with 6 mm balloon. ATTENDING SURGEON: Daljit Ng MD ANESTHESIA: Local with sedation. INDICATION: Mr. Feng is a 42-year-old gentleman with right upper extremity brachiobasilic fistula. This was slightly pulsatile on examination, and prior to clearing for use, he had a duplex which showed an outflow stenosis. He was taken to the operating room for angiographic evaluation and treatment. DESCRIPTION OF PROCEDURE: Informed consent was obtained from the patient. He was taken to the operating room, placed supine on the operating room table. An appropriate timeout was taken to ensure the patient's identity, operative site and planned procedure. The administration of antibiotics was not necessary, as this was a clean procedure without planned implantation of any foreign objects. Everyone in the room agreed, and we proceeded. His right arm was prepped and draped and locally anesthetized with 1% Lidocaine. A 21-gauge micropuncture needle was used to access the fistula. This was exchanged using Seldinger technique for a micropuncture sheath, through which a fistulogram was obtained. This showed there was an outflow stenosis. The patient was then systemically heparinized with 3000 units of IV heparin. A 0.035 Storq wire was introduced. The micropuncture sheath was changed for a 5-Malian sheath, and over the wire and through the sheath, a 6 x 80 balloon was used to angioplasty the outflow vein. The completion angiogram showed excellent result ____ or extravasation. The wire, catheter and sheath were removed and pressure was held for hemostasis. There were no complications. I was present, scrubbed, and performed the entire procedure. The patient had a patent brachiobasilic fistula with an outflow stenosis that was successfully angioplastied to 6 mm without any residual stenosis or extravasation. MD HILTON Dowd/LISA , 05:48 AM , 07:08 AM
== END 2017-12-24 17:14 | disposition home or self-care (01) ==
LOC: HDIC 14:57 → HDOC 14:57
PROVIDERS: ATTEND Surgery
DX: T82.591A Other mechanical complication of surgically created arteriovenous shunt, initial encounter (principal); I12.0 Hypertensive chronic kidney disease with stage 5 chronic kidney disease or end stage renal disease; N18.6 End stage renal disease; Z99.2 Dependence on renal dialysis; E83.39 Other disorders of phosphorus metabolism
CPT/HCPCS: 36901; 37248; 84132; C1725; C1769; C1893; J1644; J2250; J3010; Q9967